=== PATIENT | female | born 1955 | race Caucasian/White ===

== ENCOUNTER 2020-07-03 08:14 | Emergency (ER) | payer MEDICARE, OTHER ==
[~2020-07-03] VITALS: Ht 160 cm; Wt 62.6 kg
[2020-07-03] MEDS ORDERED: ZOLOFT50 M1 PO (08:25)
[2020-07-03] MEDS ORDERED: CIPROFLOXIN HC2.5 M1 OPHTHALMIC (09:06)
[2020-07-03 09:14] VITALS: BP 125/81
== END 2020-07-03 09:14 | disposition home or self-care (01) ==
LOC: M.ERS 08:14
DX: H10.9 Unspecified conjunctivitis (principal); Z79.899 Other long term (current) drug therapy; Z88.0 Allergy status to penicillin